=== PATIENT | female | born 1990 | race Caucasian/White ===

== ENCOUNTER 2020-11-21 10:47 | Emergency (ER) | payer MEDICAID ==
[~2020-11-21] VITALS: Ht 165.1 cm; Wt 88.0 kg
[2020-11-21] MEDS ORDERED: ONDANSETRON HCL 4MG/2ML INJ IM STA (12:10)
[2020-11-21] MEDS ORDERED: LIDOCAINE HCL 1% 20ML VIAL (Pyxis) INJ INFIL ONE (12:15)
[2020-11-21] MEDS ORDERED: CEFTRIAXONE SODIUM 500 MG/VIAL IM ONE (12:15)
[2020-11-21] MEDS ORDERED: AZITHROMYCIN 500 MG TABLET PO ONE (12:15)
[2020-11-21 12:20] LABS: CLARITY URINE CLEAR (CLEAR); COLOR URINE YELLOW (YELLOW); KETONES URINE NEGATIVE (NEGATIVE); LEUKOCYTE ESTERASE URINE NEGATIVE (NEGATIVE); NITRITE URINE NEGATIVE (NEGATIVE); OCCULT BLOOD URINE NEGATIVE (NEGATIVE); PROTEIN URINE NEGATIVE (NEGATIVE); SPECIFIC GRAVITY URINE 1.007 (1.005-1.030); UROBILINOGEN URINE 0.2 E.U./dL (0.2-1.0)
[2020-11-21] MEDS ORDERED: METR-167 PO (13:09)
[2020-11-21 15:00] VITALS: BP 111/60
== END 2020-11-21 15:37 | disposition home or self-care (01) ==
LOC: ER 10:47
DX: T74.21XA Adult sexual abuse, confirmed, initial encounter (principal); Y07.9 Unspecified perpetrator of maltreatment and neglect; Z20.2 Contact with and (suspected) exposure to infections with a predominantly sexual mode of transmission
CPT/HCPCS: 81003; 81025; 96372; 99284; J0696; J2405; J3490; Z7610